=== PATIENT | female | born 1975 | race Caucasian/White ===

== ENCOUNTER → 2023-07-08 13:43 | Outpatient (REF) | payer BC, SELFPAY | LOC: CLAB 13:43 | PROVIDERS: ATTENDING PHYSICIAN Obstetrics & Gynecology | DX: N93.9 Abnormal uterine and vaginal bleeding, unspecified (principal) | CPT/HCPCS: 88305 ==

== ENCOUNTER → 2023-07-16 | Outpatient (REF) | payer BC, SELFPAY | LOC: DHSLP | PROVIDERS: ATTENDING PHYSICIAN Physician Assistant | DX: G47.33 Obstructive sleep apnea (adult) (pediatric) (principal); R06.83 Snoring | CPT/HCPCS: 95800 ==

== ENCOUNTER → 2023-10-02 16:39 | Outpatient (REF) | payer BC, SELFPAY | LOC: RAD 16:39 | PROVIDERS: ATTENDING PHYSICIAN Physician Assistant | DX: E04.1 Nontoxic single thyroid nodule (principal) | CPT/HCPCS: 76536 ==

== ENCOUNTER 2024-04-08 06:21 | Day surgery (SDC) | payer BC, SELFPAY | END 2024-04-08 14:59 | disposition home or self-care (01) | LOC: GI 06:21 | PROVIDERS: ATTENDING PHYSICIAN Specialist | DX: K22.70 Barrett's esophagus without dysplasia (principal); R12 Heartburn; K31.89 Other diseases of stomach and duodenum; K29.60 Other gastritis without bleeding | CPT/HCPCS: 43239; 88305; 88342 ==

== ENCOUNTER → 2024-04-25 07:57 | Outpatient (REF) | payer BC, SELFPAY | LOC: WDC 07:57 | PROVIDERS: ATTENDING PHYSICIAN Obstetrics & Gynecology; FAMILY PHYSICIAN Physician Assistant | DX: Z12.31 Encounter for screening mammogram for malignant neoplasm of breast (principal) | CPT/HCPCS: 77063; 77067 ==

== ENCOUNTER → 2024-05-20 08:06 | Outpatient (REF) | payer BC, SELFPAY | LOC: HWRAD 08:06 | PROVIDERS: ATTENDING PHYSICIAN Physician Assistant; REFERRING PHYSICIAN Internal Medicine Gastroenterology | DX: R10.84 Generalized abdominal pain (principal) | CPT/HCPCS: 76700; 76830; 76856 ==

== ENCOUNTER → 2024-10-26 06:38 | Outpatient (REF) | payer BC, SELFPAY | LOC: RAD 06:38 | PROVIDERS: ATTENDING PHYSICIAN Specialist; FAMILY PHYSICIAN Physician Assistant | DX: R10.9 Unspecified abdominal pain (principal) | CPT/HCPCS: 74177; Q9967 ==

== ENCOUNTER → 2024-11-11 08:38 | Outpatient (REF) | payer BC, SELFPAY | LOC: WDC 08:38 | PROVIDERS: ATTENDING PHYSICIAN Obstetrics & Gynecology; FAMILY PHYSICIAN Physician Assistant | DX: R92.2 Inconclusive mammogram (principal) | CPT/HCPCS: 76641 ==

== ENCOUNTER → 2024-11-21 17:16 | Outpatient (REF) | payer BC, SELFPAY | LOC: RAD 17:16 | PROVIDERS: ATTENDING PHYSICIAN Obstetrics & Gynecology; FAMILY PHYSICIAN Physician Assistant | DX: N83.201 Unspecified ovarian cyst, right side (principal) | CPT/HCPCS: 76830; 76856 ==